=== PATIENT | female | born 1955 | race Caucasian/White ===

== ENCOUNTER 2016-10-15 06:09 | Inpatient (IN) | payer BC ==
[2016-10-15] MEDS ORDERED: Morphine INJ* 4 MG/ML 1 ML SYRINGE IV ONE (06:12)
[2016-10-15] MEDS ORDERED: HYDROmorphone* 1 MG/ML 1 ML SYR IV SLOW PU ONE (06:39)
[2016-10-15] MEDS ORDERED: Ondansetron INJ* 2 MG/ML VIAL IV ONE (06:39)
[2016-10-15 06:48] LABS: Hematocrit 38 % (35-47); Mean Corpuscular HGB Conc 34 g/dl (31-36); Mean Corpuscular Hemoglobin 31 pg (27-31); Mean Corpuscular Volume 92 fL (80-97); Mean Platelet Volume 9 um3 (7.4-10.4); Red Blood Count 4.15 10^6/ul (4.0-5.4); Red Cell Distribution Width 13 % (10.5-15); White Blood Count 4.7 10^3/ul (3.5-10.8)
[2016-10-15 06:58] LABS: BUN/Creatinine Ratio 16.2 (8-20); Calcium 9.5 mg/dL (8.6-10.3); EGFR African American 103.7 (>60); EGFR Non-African American 80.6 (>60)
[2016-10-15] MEDS ORDERED: fentaNYL* 50 MCG/ML 2 ML VIAL (100 MCG VIAL) IV SLOW PU ONE (07:17)
--- NOTE | 2016-10-15 07:52 | RAD ---
HISTORY: Left hip pain, deformity, trauma COMPARISONS: None relevant VIEWS: 4, frontal views of the pelvis with frontal and crosstable lateral views of the left hip. FINDINGS: BONE DENSITY: Normal. BONES: There is an angulated and slightly displaced intertrochanteric fracture of the proximal left femur JOINTS: There is no arthropathy. ALIGNMENT: There is no dislocation. SOFT TISSUES: Unremarkable. OTHER FINDINGS: Mild degenerative changes are noted of the lower lumbar spine IMPRESSION: PROXIMAL LEFT FEMUR FRACTURE
--- NOTE | 2016-10-15 09:28 | RAD ---
Indication: LEFT leg shortening and external rotation post fall down stairs. LEFT hip pain. Comparison: LEFT hip radiographs of the same date. Technique: Noncontrast CT pelvis. Multiplanar reformation with bone algorithm. Report: Calcific plaque of normal diameter visualized aortic bifurcation and iliac arteries. No CT abnormality of the visualized bowel, distal ureters, or urinary bladder. Post hysterectomy. Unremarkable adnexal regions. Negative for ascites. Negative for lymphadenopathy. Chronic appearing bilateral L5 spondylolysis with grade 1 L5-S1 anterolisthesis. Negative for pelvic fracture or joint diastases. Comminuted intratrochanteric to subtrochanteric fracture of the LEFT femur with impaction and varus and apex anterior angulation. Negative for fracture of the femoral head articular surface. Associated moderate LEFT hip joint effusion with fat fluid level consistent with lipohemarthrosis. The femoral head remains normally located in the acetabulum. IMPRESSION: Comminuted intratrochanteric to subtrochanteric fracture of the LEFT femur with impaction and varus and apex anterior angulation. Negative for fracture of the femoral head articular surface. Associated moderate LEFT hip joint effusion with fat fluid level consistent with lipohemarthrosis.
--- NOTE | 2016-10-15 09:57 | UC ---
Jimbo Ingram Alok, scribed for Kem Ruiz MD on 10/15/16 at 0755 . Progress - Progress Note Progress Note: 60 y/o female presents to the ED last signed off by Dr. Mejias at 0700. Pt reportedly c/o hip pain following fall from the stairs late last night. Pt denies any neck, back, shoulder, or STACY. Pt denies any PMHx. Appearance: Positive: Well-Appearing, No Pain Distress, Well-Nourished Skin: Positive: Warm, Skin Color Reflects Adequate Perfusion, Dry Head/Face: Positive: Normal Head/Face Inspection Eyes: Positive: Normal, EOMI, JJ ENT: Positive: Normal ENT inspection Neck: Positive: Supple, Nontender Respiratory/Lung Sounds: Positive: Clear to Auscultation, Breath Sounds Present Cardiovascular: Positive: Normal, RRR Abdomen Description: Positive: Nontender, Soft Bowel Sounds: Positive: Present Musculoskeletal: Positive: Left hip ROM limited. Lower extremity externally rotated with shortening Neurological: Positive: Normal, Alert, Oriented to Person Place, Time Psychiatric: Positive: Normal, Affect/Mood Appropriate - Results/Orders Results/Orders: Pt groggy from pain medication, left hip ROM limited secondary to fraction. Externally rotated and shortening. Hip/Pelvis XRAY- IMPRESSION: PROXIMAL LEFT FEMUR FRACTURE Pt is more comfortable, alert and oriented x3, and hemodynamically stable. Diagnosis is left femur proximal fracture I discussed the case with Dr. Muro and he will admit patient to his services and he requested for medical clearance. Dr. ramey from hospitalist services will medically clear for the patient. - EKG/XRAY/CT XRAY: hip Xray Comments: Hip/Pelvis XRAY- IMPRESSION: PROXIMAL LEFT FEMUR FRACTURE - Consult/PCP Time Called: 08:30 Consult/PCP: Dr Muro (ortho) and Dr Ramey (hospitalist) Consult Reason/Comments: Dr Ramey Will admit pending medical clearance. Dr Ramey will admit pt. The documentation as recorded by the Jimbo cortez Alok accurately reflects the service I personally performed and the decisions made by , Kem Ruiz MD.
--- NOTE | 2016-10-15 10:08 | HP ---
H&P (Free Text) History and Physical: PCP: Gilberto Contreras NP Date/Time of Evaluation: 10/15/16 CC: Left hip pain after fall HPI: Ms. Lew is a 60 yo female with a PMH of who presents to the ED today with left hip pain after fall. Pt reports feeling in her normal state of health today when she tripped over her slippers and fell on to her left side. She had immediate severe pain with inability to stand and therefore EMS was called for transport. EMS notes that patient's left leg appeared shortened and rotated but that she was otherwise stable. PMedHx PSurgHx SocHx: FamHx: ROS: as above, otherwise reviewed and all were negative Vitals: Vital Signs 10/15/16 10/15/16 10/15/16 06:15 06:30 06:47 Temperature 98.8 F Pulse Rate 90 Respiratory 14 14 15 Rate Blood Pressure 138/76 (mmHg) O2 Sat by Pulse 100 Oximetry 10/15/16 10/15/16 07:30 07:42 Temperature Pulse Rate 79 Respiratory 15 15 Rate Blood Pressure 125/61 (mmHg) O2 Sat by Pulse 92 Oximetry Constitutional: NAD, normally developed, well-nourished vitals: HEENM: atraumatic; sclera/conjunctiva: ; blephara: ; fundi: ; auricles: ; external auditory canals/tympanic membranes: ; hearing: ; nose/nasal: ; dentition: ; oropharynx: Neck: soft tissue: ; thyroid: Pulmonary: clear to auscultation bilaterally, good aeration, no accessory muscle use, percussion, fremitus CV: RR/RR, normal S1S2, no carotid bruit, no femoral bruit, no abdominal bruit, no jugular venous distention, 2+ B DP/PT, no edema Abdominal: soft, non-distended, non-tender, no rebound/guarding/rigidity, normoactive bowel sounds, no hepatosplenomegaly or masses, no costovertebral angle tenderness Lymph: neck: ; axilla: ; groin: Musculoskeletal: general: ; gait: ; stability: Integumental: Neurological Psychiatric orientation: affect: mood: eye contact: content: memory: responses: insight: Testing: Sodium 136 mmol/L (133-145) 10/15/16 06:30 Potassium 4.0 mmol/L (3.5-5.0) 10/15/16 06:30 BUN 12 mg/dL (6-24) 10/15/16 06:30 Creatinine 0.74 mg/dL (0.51-0.95) 10/15/16 06:30 Calcium 9.5 mg/dL (8.6-10.3) 10/15/16 06:30 ECG, personally reviewed: CXR, personally reviewed: Impression: DIAGNOSIS & PLAN Primary Secondary Admission Rational: DVTp: Code Status: HCP:
[2016-10-15] MEDS ORDERED: HYDROmorphone* 1 MG/ML 1 ML SYR IV SLOW PU PRN (10:20)
[2016-10-15] MEDS ORDERED: Ondansetron INJ* 2 MG/ML VIAL IV PRN ×3 (10:21→20:50)
[2016-10-15] MEDS ORDERED: HYDROmorphone* 2 MG/ML 1 ML SYR ONE (10:26)
[2016-10-15] MEDS ORDERED: Acetaminophen TAB* 325 MG PO PRN ×2 (10:33→18:42)
[2016-10-15] MEDS ORDERED: oxyCODONE/Acetamin 5/325 MG* TAB PO PRN (11:00)
[2016-10-15] MEDS: oxyCODONE/Acetamin 5/325 MG* TAB PO PRN (14:54)
--- NOTE | 2016-10-15 14:59 | HP ---
ADMISSION HISTORY AND PHYSICAL: DATE OF ADMISSION: 10/15/16 CHIEF COMPLAINT: Left hip pain secondary to mechanical fall. HISTORY OF PRESENT ILLNESS: The patient is a 60-year-old female who was in her normal state of good health when she tripped on her slipper coming down the stairs early this morning around 5 a.m., causing her to fall down approximately 6 stairs at her home. She had significant hip pain and was unable to get up from the floor. She called her son who was at the home this morning and emergency ambulance was called. She was brought to the [facility] where x-rays of the hip and pelvis reveal a displaced intertrochanteric left hip fracture. The patient denies loss of consciousness or head injury or other bodily injury upon her fall. PAST MEDICAL HISTORY: Significant for glaucoma and lateral epicondylitis of the left elbow, asthma. PAST SURGICAL HISTORY: Negative. MEDICATIONS: She takes: 1. Gabapentin 300 mg p.o. q.h.s. 2. Timolol eye drops 1 drop both eyes b.i.d. 3. Ibuprofen 400 mg p.o. q.h.s. p.r.n. elbow pain. 4. She takes albuterol inhaler 1 to 2 puffs q.4 hours p.r.n. shortness of breath. ALLERGIES: She has no known drug allergies. Pollen causes seasonal allergy problems yearly. SOCIAL HISTORY: The patient is . She has a son and a daughter who live nearby. 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 She denies use of alcohol or tobacco products. REVIEW OF SYSTEMS: Patient denies recent loss of consciousness, lightheadedness , dizziness. Denies recent shortness of breath, chest pain or palpitations. Denies gastrointestinal or genitourinary problems. Extremities: Per HPI. PHYSICAL EXAMINATION The patient evaluated lying supine in the emergency department in mild-to- moderate discomfort due to hip pain. She is alert and oriented x3. HEENT: PERRLA. EOMI. Neck: Supple. No bruits. Heart: Regular rate and rhythm. No murmurs auscultated. Lungs: Clear to auscultation without wheezes, rales or rhonchi. Abdomen is soft and nontender. Normoactive bowel sounds x4 quadrants. Upper extremities has some slight swelling at the left lateral epicondyle which has been chronic, mild tenderness. Her neurovascular status is intact with moving both upper extremities freely. The left lower extremity is shortened and externally rotated. She has a 2+ pedal pulse. She is able to wiggle her toes. Gross neurovascular status is intact. LABORATORY DATA: Lab studies show hemoglobin 13, hematocrit 38, white count 4.7. Remainder of her labs are essentially within normal limits. X-ray evaluation of the hip and pelvis reveals a displaced left intratrochanteric hip fracture with varus angulation. IMPRESSION: Displaced left intertrochanteric hip fracture. PLAN: The patient is admitted to the service of Dr. Muro. She has been n.p.o. of food and liquids since last night. Leah Lawson has seen her in consultation from the medical perspective and is cleared for surgical intervention. We recommend open reduction and internal fixation of the left hip. She will remain n.p.o. for surgical intervention this evening with Dr. Muro. Risks including but not limited to anesthesia complications, infection , failure of hardware and need for revision surgery, deep venous thrombosis, pulmonary embolism need for blood transfusion postoperatively all discussed with the patient. She understands and elected to proceed with surgery. MADHAVI DELGADO [id number]/[facility] #: [id number] I have seen and examined Ms. Lew. I agree with the above. TA/GS are functioning. Xray and CT show a comminuted intertrochanteric hip fracture. The plan is for closed versus open reduction and internal fixation of the fracture. I will plan on using a long gamma nail. LAYNE
--- NOTE | 2016-10-15 15:16 | CONS ---
HOSPITAL MEDICINE CONSULTATION REPORT: DATE OF CONSULT: 10/15/16 PRIMARY CARE PROVIDER: Gilberto Contreras NP. ATTENDING PHYSICIAN: Dr. Muro. CONSULTING PHYSICIAN: Dr. Gabino Ramey (dictation provided by Leah Lawson NP ). CHIEF COMPLAINT: Left hip pain after fall. HISTORY OF PRESENT ILLNESS: Ms. Lew is a 60-year-old female with a past medical history of very mild intermittent asthma, who presents today to the hospital after a fall at home complaining of left hip pain. Ms. Lew states she was in her normal state of health when she tripped over her slipper and fell down 5 to 6 steps. The patient had immediate severe pain to her left hip and was unable to ambulate. Emergency Medical Services were contacted and they brought her to the emergency room for evaluation. It was noted by the EMS that the patient's leg was externally rotated and shortened, but that she was otherwise stable. In the emergency room, she has been confirmed to have a left intertrochanteric femur fracture. Dr. Muro has been called from Orthopedic Services for admission. Ms. Lew states that she is in generally very good health. She states she would easily be able to walk up a flight of stairs carrying groceries with no chest pain or shortness of breath. She has no history of cardiac disease or pulmonary disease. She is a former smoker but quit over 15 years ago. She does use an albuterol inhaler but probably no more than once per month. PAST MEDICAL HISTORY: 1. Mild intermittent asthma. 2. History of knee arthroscopy. 3. History of left wrist de Quervain's release. 4. Tonsillectomy. MEDICATIONS: 1. Albuterol p.r.n. 2. Cosopt 1 drop both eyes b.i.d. 3. Ibuprofen p.r.n. 4. Gabapentin 300 mg p.o. q.p.m. ALLERGIES: No known drug allergies. FAMILY HISTORY: The patient reports that both her mother and father and that the father had lung cancer and mother had breast cancer. SOCIAL HISTORY: Again, the patient quit smoking over 15 years ago. She does not drink alcohol, has no history of drug abuse. She states that her Lamonte will be the healthcare proxy. She lives with Lamonte and 2 grandchildren. REVIEW OF SYSTEMS: A 14-point review of systems was completed with Ms. Lew today and all those not mentioned above were negative. PHYSICAL EXAMINATION: Vital Signs: Temperature 98.8, pulse rate 90, respiratory rate 14, O2 saturation 100% on room air. Blood pressure 138/76. General: Ms. Lew is lying in bed. She appears mildly uncomfortable but in no acute distress. Neuro: She is alert and oriented x3. She moves all extremities equally. There is no facial asymmetry or focal weakness. Extraocular movements are intact. Heart S1, S2. No murmur, rub or gallop and regular. Lungs are clear to auscultation bilaterally with no accessory muscle use and good aeration. Abdomen: Soft and nontender with bowel sounds positive x4. Extremities: No cyanosis or edema. The patient's left lower extremity is externally rotated and shortened. Skin: Intact. DIAGNOSTIC STUDIES/LAB DATA: WBC 4.7, hemoglobin 13.0, hematocrit 38, platelet count 199. Sodium 136, potassium 4.0, chloride 105, serum bicarbonate 26, BUN 12, creatinine 0.74. The patient's EKG is pending. Lower extremity CT is read as follows: "Comminuted intertrochanteric to subtrochanteric fracture of the left femur with impaction varus and apex anterior angulation. Negative for fracture of the left femoral head articular surface, associated moderate left hip joint effusion with fat fluid level consistent with lipohemarthrosis." Hip and pelvis x-ray shows "proximal left femur fracture." ASSESSMENT: Ms. Lew is a 60-year-old female who is otherwise healthy other than a very mild intermittent asthma, who presents today to the hospital after a fall with a left hip fracture. Plans are for orthopedics to admit the patient and Hospital Medicine will be providing consultation. Our recommendations are as follows: 1. Left hip fracture: Dr. Muro will be seeing the patient with proposed surgery for today. The patient will have pain medications p.r.n. She will have Zofran p.r.n. After surgery, we will be monitoring her H and H closely and she will have therapy services. The patient is a low risk for cardiac complications for the surgery. She is easily able to obtain 4 METS of activity without any symptoms. She has no history of cardiac or pulmonary disease. I am waiting for an EKG, which is pending. 2. Asthma. The patient reports using her inhaler no more than once per month. She has no evidence of exacerbation at this point, but we will monitor her closely. 3. DVT prophylaxis will be per Ortho. 4. Code status is full code. DISPOSITION: Per Ortho. TIME SPENT: Approximately 60 minutes were spent in the consultation of this patient, more than half that time was spent with the patient at the bedside, reviewing the events leading up to this hospitalization, performing the physical examination and reviewing my plan of care. LEAH LAWSON NP CC: Gilberto Contreras NP* [id number]/[facility] #: [id number] MTDShar
[2016-10-15] MEDS ORDERED: ceFAZolin 2 GM PREMIX(*) 2 GM/50 ML BAG IVPB ONE (17:11)
[2016-10-15] MEDS ORDERED: Bupivacaine 0.5% W/EPI SDV* 30 ML VIAL ONE (17:21)
[2016-10-15] MEDS ORDERED: Dexamethasone IV* 4 MG/ML 1 ML (4 MG) ONE (17:32)
[2016-10-15] MEDS ORDERED: Midazolam* 1 MG/ML 5 ML VIAL (5 MG) ONE (17:32)
[2016-10-15] MEDS ORDERED: Famotidine IV* 10 MG/ML 2 ML (20 mg) ONE (17:32)
[2016-10-15] MEDS ORDERED: fentaNYL* 50 MCG/ML 2 ML VIAL (100 MCG VIAL) ONE (17:32)
[2016-10-15] MEDS ORDERED: Lidocaine 2% PF* 5 ML VIAL ONE (17:32)
[2016-10-15] MEDS ORDERED: Propofol* 10 MG/ML 20 ML BTL IV PUSH ONE (17:32)
[2016-10-15] MEDS ORDERED: Scopolamine 1.5 mg* PATCH ONE (17:33)
[2016-10-15] MEDS ORDERED: Rocuronium* 10 MG/ML VIAL ONE (17:59)
[2016-10-15] MEDS ORDERED: PROCHLORPERAZINE INJ 5 MG/ML 2 ML VIAL IV PRN (18:42)
[2016-10-15] MEDS ORDERED: fentaNYL* 50 MCG/ML 2 ML VIAL (100 MCG VIAL) IV PRN (18:42)
[2016-10-15] MEDS ORDERED: DiMENhydriNATE IV* 50 MG/ML VIAL IV PUSH PRN (18:42)
[2016-10-15] MEDS ORDERED: Levalbuterol 0.63MG/3ML NEB INH PRN (18:42)
[2016-10-15] MEDS ORDERED: HYDROmorphone* 1 MG/ML 1 ML SYR IV PRN (18:42)
[2016-10-15] MEDS ORDERED: HYDROmorphone* 1 MG/ML 1 ML SYR ONE (19:33)
[2016-10-15] MEDS ORDERED: Ondansetron TAB* 4 MG PO PRN (20:50)
[2016-10-15] MEDS ORDERED: diPHENhydraMINE IV* 50 MG/ML 1 ml VIAL (BENADRYL) IV PRN (20:50)
[2016-10-15] MEDS ORDERED: Morphine INJ* 4 MG/ML 1 ML SYRINGE IV PRN (20:50)
[2016-10-15] MEDS ORDERED: Magnesium Hydroxide LIQ* 30 ML UDC PO PRN (20:50)
[2016-10-15] MEDS ORDERED: Polyethylene Glycol 3350* 17 GM PACKET PO PRN (20:50)
[2016-10-15] MEDS ORDERED: LACTULOSE* 30 ML UDC PO PRN (20:50)
[2016-10-15] MEDS ORDERED: Bisacodyl SUPP* 10 MG SUPP PR PRN (20:50)
[2016-10-15] MEDS ORDERED: Albuterol HFA INHALER* 8 gm MDI INH PRN (20:56)
--- NOTE | 2016-10-15 20:56 | RAD ---
INDICATION: Left hip gamma nail COMPARISON: Left hip October 15, 2016 TECHNIQUE: Intraoperative spot images were acquired read FINDINGS: There are interval postoperative changes with gamma nail placement. The fracture fragments are in good position and alignment. IMPRESSION: LEFT GAMMA NAIL PLACEMENT.
[2016-10-15] MEDS: D5W 1/2 NS 1000 ML BAG* 1,000 ML IV SCH (22:57)
[2016-10-15] MEDS: Docusate CAP* 100 MG PO SCH (23:49)
[2016-10-15] MEDS: Gabapentin CAP(*) 300 MG PO SCH (23:49)
[2016-10-15] MEDS: Dorzolamide/Timolol OPTH (NF) 10 ML BOT BOTH EYES SCH (23:53)
[2016-10-16] MEDS: ceFAZolin 1 GM in Dextrose (*) 1 GM/50 ML BAG IVPB SCH ×3 (01:57→18:16)
--- NOTE | 2016-10-16 05:46 | OP ---
OPERATIVE REPORT: DATE OF OPERATION: 10/15/16 DATE OF : 59 SURGEON: Jarrell Muro MD PIANO STRINGER: MADHAVI Hickey ANESTHESIOLOGIST: Dr. Mahmood. ANESTHESIA: General. PRE-OP DIAGNOSIS: Left comminuted peritrochanteric hip fracture. POST-OP DIAGNOSIS: Left comminuted peritrochanteric hip fracture. OPERATIVE PROCEDURE: Closed reduction and percutaneous fixation with a long gamma nail of left hip pretrochanteric hip fracture. INDICATIONS: Jenifer had a fall this morning on the stairs in her home. She is 60, she is relative ly healthy. She came to the emergency room and the fracture was diagnosed. We talked about risks a nd benefits and she elected to proceed with surgery. ESTIMATED BLOOD LOSS: 200 mL. COMPLICATIONS: None. FINDINGS: As expected. DESCRIPTION OF PROCEDURE: Jenifer was seen in the preoperative holding area and the correct site an d side and procedure were identified. We came back to the operating room, anesthesia was induced, a nd the patient was positioned on the fracture table with the left leg in the traction boot and the r ight leg in the well- leg mcclendon. We then obtained fluoroscopic imaging. The leg was positioned to obtain the closed reduction. Once we had the reduction in satisfactory position, we went ahead and prepped the leg in a standard fashion with some chlorhexidine scrub followed by ChloraPrep. The martiner curtain drape was then placed. We then had a formal time-out. I then brought in the C-arm imaging and marked the trajectory of my starting pin. This was then plac ed in the appropriate location on the tip of the greater trochanter. This was confirmed on the AP a nd lateral imaging. I then advanced the starting pin. The starting awl was then placed over the st arting pin. I then placed the guidewire. I measured the length of the nail. A 360 mm x 11 x 125 d egree nail was selected. This was placed in standard fashion. Prior to placing the nail, I had patrick med up to a 13-mm reamer. The starting reamer was also used. Once the nail was placed and position was confirmed with fluoroscopic imaging and I was satisfied with the position, I then placed the reed de for the lag screw pin. The skin incision was made and the guide was placed down to the bone. I t hen used fluoroscopic imaging to place the guide pin for the lag screw in the appropriate position. The drill was then used to drill over the guide pin. I had measured previously and selected a 95-m m lag screw. Once the path had been drilled, we then placed the lag screw. With the lag screw plac ed, I used a compression tool to compress a little bit at the fracture site. I then placed a set sc rew and then removed the guide handle. AP and lateral views of the hip showed nice alignment. We th en came back down to the distal aspect of the nail and perfect circles were obtained. I then placed one 42.5 mm distal locking screw through the static hole. The final fluoroscopic imaging was obtain ed. All wounds were copiously irrigated. The deeper tissues were approximated with some 2-0 Polysor b suture and skin was closed with maulik. Marcaine 0.5% with epinephrine was infiltrated into the operative wounds. The wounds were then dressed with Xeroform, 4 x 4's, ABDs on the proximal wounds, and some foam tape. She was then transferred back to the stretcher and woken back up and taken to the recovery room in stable condition. [id number]/[facility] #: [id number]
[2016-10-16] MEDS: oxyCODONE/Acetamin 5/325 MG* TAB PO PRN ×4 (06:00→18:15)
[2016-10-16 06:45] LABS: Hematocrit 32 % (35-47); Hemoglobin 10.8 g/dl (12.0-16.0)
[2016-10-16 07:04] LABS: Calcium 8.7 mg/dL (8.6-10.3); EGFR African American 102.1 (>60); EGFR Non-African American 79.4 (>60); Potassium 4.4 mmol/L (3.5-5.0)
--- NOTE | 2016-10-16 07:37 | PN ---
Progress Note - Progress Note Note: No issues this morning. Expected discomfort. Exam: dressing c/d/i, +TA/GS, length and alignment okay A/P: POD#1 s/p left hip gamma nail fixation of fracture plan OOB today, 50% weight bearing, if unable to do 50% weight bearing then we can do weight bearing as tolerated lovenox while in house and then d/c on ASA 325 EC daily dressing change tomorrow d/c planning f/u in my office in 2 weeks for suture removal
[2016-10-16] MEDS: Docusate CAP* 100 MG PO SCH ×2 (08:36→20:40)
[2016-10-16] MEDS: Vitamin THERAPEUTIC TAB PO SCH (08:37)
[2016-10-16] MEDS: Dorzolamide/Timolol OPTH (NF) 10 ML BOT BOTH EYES SCH (08:37)
[2016-10-16] MEDS: D5W 1/2 NS 1000 ML BAG* 1,000 ML IV SCH (08:42)
--- NOTE | 2016-10-16 11:20 | PN ---
Progress Note - Progress Note SOAP: Subjective: []60 y/o female s/p gamma nailing L hip 10/15/[address] Muro. Patient sitting in bed, pain controlled with pain meds, VSS overnight, H&H stable. No questions/ concerns. Objective: [General- Well appearing, NAD MSK- Dressing intact, no drainage noted. + DF/PF b/l LE, PT pulses 2+ b/l, no edema b/l LE, neg homans b/l LE, sensation grossly intact b/l ankles. Vital Signs Temp 98.2 F 10/16/16 07:52 Pulse 62 10/16/16 07:52 Resp 16 10/16/16 10:17 BP 103/52 10/16/16 07:52 Pulse Ox 99 10/16/16 07:52 Intake & Output 10/15/16 10/16/16 10/16/16 18:59 06:59 18:59 Intake Total 250 3087 120 Output Total 1570 1400 Balance 250 1517 -1280 Weight 137 lb Intake: IV Fluids 3087 D5 1/2 NS 687 LR 2400 IVPB 250 LR 250 Oral 0 120 Output: Urine 950 Haynes 620 1400 Laboratory Results - last 24 hr 10/16/16 10/16/16 06:18 06:18 Hgb 10.8 L Hct 32 L Sodium 135 Potassium 4.4 Chloride 102 Carbon Dioxide 27 Anion Gap 6 BUN 9 Creatinine 0.75 Est GFR ( Amer) 102.1 Est GFR (Non-Af Amer) 79.4 BUN/Creatinine Ratio 12.0 Glucose 166 H Calcium 8.7 ] Assessment: [60 y/o female s/p gamma nailing L hip 10/15/[address] Muro.] Plan: [- DVT prophylaxis- lovenox in house, ASA daily at home - Remain 50% weight bearing - Follow up with Dr. Muro 10-14 days after D/C for re-check, staple removal - Continue PT/ OT - Likely DC Sin, Brooklynn. Active Medications Generic Name Dose Route Start Last Admin Trade Name Freq PRN Reason Stop Dose Admin Acetaminophen 650 mg 10/15/16 10:33 Tylenol Tab* PO Q6H PRN pain or temp Albuterol 1 puff 10/15/16 20:56 Ventolin Hfa Inhaler* INH Q4H PRN SOB/WHEEZING Bisacodyl 10 mg 10/15/16 20:50 Dulcolax Supp* OH DAILY PRN constipation Diphenhydramine HCl 12.5 mg 10/15/16 20:50 Benadryl Iv* IV Q6H PRN PRURITIS Docusate Sodium 100 mg 10/15/16 21:00 10/16/16 08:36 Colace Cap* PO 100 mg BID JESSEE Administration Enoxaparin Sodium 30 mg 10/16/16 21:00 Lovenox(*) SUBCUT Q24H JESSEE Gabapentin 300 mg 10/15/16 18:00 10/15/16 23:49 Neurontin Cap(*) PO Not Given QPM JESSEE Dextrose/Sodium Chloride 1,000 mls @ 100 mls/hr 10/15/16 21:00 10/16/16 08:42 D5w 1/2 Ns 1000 Ml Bag* IV 100 mls/hr PER RATE JESSEE Administration Cefazolin Sodium/Dextrose 1 gm in 50 mls @ 200 mls/hr 10/16/16 02:00 10:28 Kefzol 1 Gm In Dextrose Duplex (*) IVPB 10/16/16 18:14 200 mls/hr Q8H JESSEE Administration Lactulose 30 ml 10/15/16 20:50 Lactulose* PO Q6H PRN constipation Latanoprost 1 drop 10/16/16 18:00 Xalatan 0.005%* RIGHT EYE QPM JESSEE Magnesium Hydroxide 30 ml 10/15/16 20:50 10/16/16 08:36 Milk Of Magnesia Liq* PO 30 ml Q6H PRN Administration constipation Morphine Sulfate 4 mg 10/15/16 20:50 Morphine Inj (Syringe)* IV Q2H PRN PAIN - BREAKTHROUGH Multivitamins 1 tab 10/16/16 09:00 10/16/16 08:37 Theragran Tab* PO 1 tab DAILY JESSEE Administration Pto: Remifemin 2 admin 10/17/16 09:00 Supplement PO DAILY JESSEE Ondansetron HCl 4 mg 10/15/16 20:50 Zofran Inj* IV Q6H PRN nausea Ondansetron HCl 4 mg 10/15/16 20:50 Zofran Tab* PO Q6H PRN NAUSEA Oxycodone/Acetaminophen 1 tab 10/15/16 11:00 Percocet 5/325 Tab* PO Q4H PRN PAIN - MODERATE Oxycodone/Acetaminophen 2 tab 10/15/16 11:00 10/16/16 10:17 Percocet 5/325 Tab* PO 2 tab Q4H PRN Administration PAIN - SEVERE Polyethylene Glycol/Electrolytes 17 gm 10/15/16 20:50 Miralax* PO DAILY PRN Constipation ]
--- NOTE | 2016-10-16 18:03 | PN ---
Subjective Date of Service: 10/16/16 Interval History: Patient seen and examined at bedside. Pt states that she is doing well after surgery. She had some nausea last night and this morning, she reports this is improved now. Denies fever, chills, shortness of breath, chest discomfort, V/D. Pt has been able to urinate since her mccabe was removed earlier today and is walking to the bathroom. Family History: Unchanged from Admission Social History: Unchanged from Admission Past Medical History: Unchanged from Admission Objective Active Medications: Acetaminophen (Tylenol Tab*) 650 mg PO Q6H PRN Reason: pain or temp Albuterol (Ventolin Hfa Inhaler*) 1 puff INH Q4H PRN Reason: SOB/WHEEZING Bisacodyl (Dulcolax Supp*) 10 mg CO DAILY PRN Reason: constipation Diphenhydramine HCl (Benadryl Iv*) 12.5 mg IV Q6H PRN Reason: PRURITIS Docusate Sodium (Colace Cap*) 100 mg PO BID [facility] Enoxaparin Sodium (Lovenox(*)) 30 mg SUBCUT Q24H [facility] Gabapentin (Neurontin Cap(*)) 300 mg PO QPM [facility] Dextrose/Sodium Chloride (D5w 1/2 Ns 1000 Ml Bag*) 1,000 mls @ 100 mls/hr IV PER RATE [facility] Cefazolin Sodium/Dextrose (Kefzol 1 Gm In Dextrose Duplex (*)) 1 gm in 50 mls @ 200 mls/hr IVPB Q8H [facility] Stop: 10/16/16 18:14 Lactulose (Lactulose*) 30 ml PO Q6H PRN Reason: constipation Latanoprost (Xalatan 0.005%*) 1 drop RIGHT EYE QPM [facility] Magnesium Hydroxide (Milk Of Magnesia Liq*) 30 ml PO Q6H PRN Reason: constipation Morphine Sulfate (Morphine Inj (Syringe)*) 4 mg IV Q2H PRN Reason: PAIN - BREAKTHROUGH Multivitamins (Theragran Tab*) 1 tab PO DAILY [facility] Pto: Remifemin (Supplement) 2 admin PO DAILY [facility] Ondansetron HCl (Zofran Inj*) 4 mg IV Q6H PRN Reason: nausea Ondansetron HCl (Zofran Tab*) 4 mg PO Q6H PRN Reason: NAUSEA Oxycodone/Acetaminophen (Percocet 5/325 Tab*) 1 tab PO Q4H PRN Reason: PAIN - MODERATE Oxycodone/Acetaminophen (Percocet 5/325 Tab*) 2 tab PO Q4H PRN Reason: PAIN - SEVERE Polyethylene Glycol/Electrolytes (Miralax*) 17 gm PO DAILY PRN Reason: Constipation Vital Signs 10/15/16 10/15/16 10/15/16 20:46 20:50 20:58 Temperature 98.2 F Pulse Rate 106 71 70 Respiratory 16 20 14 Rate Blood Pressure 148/71 141/65 123/50 (mmHg) O2 Sat by Pulse 96 100 100 Oximetry 10/15/16 10/15/16 10/15/16 21:17 21:32 21:48 Temperature Pulse Rate 88 87 74 Respiratory 13 13 13 Rate Blood Pressure 127/64 119/52 119/58 (mmHg) O2 Sat by Pulse 100 100 95 Oximetry 10/15/16 10/15/16 10/15/16 22:02 22:20 22:30 Temperature 98.8 F 98.0 F Pulse Rate 73 82 86 Respiratory 15 12 16 Rate Blood Pressure 115/73 125/59 145/85 (mmHg) O2 Sat by Pulse 97 94 97 Oximetry 10/15/16 10/15/16 10/15/16 22:41 22:54 23:48 Temperature 98.0 F 98.0 F Pulse Rate 84 86 Respiratory 22 16 16 Rate Blood Pressure 145/85 107/59 (mmHg) O2 Sat by Pulse 94 97 Oximetry 10/16/16 10/16/16 10/16/16 00:00 00:54 02:45 Temperature 98.6 F 97.9 F Pulse Rate 80 80 Respiratory 16 16 Rate Blood Pressure 107/65 113/68 (mmHg) O2 Sat by Pulse 97 97 98 Oximetry 10/16/16 10/16/16 10/16/16 05:10 06:00 07:52 Temperature 98.1 F 98.2 F Pulse Rate 68 62 Respiratory 16 18 18 Rate Blood Pressure 105/48 103/52 (mmHg) O2 Sat by Pulse 99 99 Oximetry 10/16/16 10/16/16 10/16/16 08:00 10:17 11:45 Temperature Pulse Rate 64 Respiratory 16 16 Rate Blood Pressure 98/52 (mmHg) O2 Sat by Pulse 98 Oximetry 10/16/16 10/16/16 10/16/16 12:17 12:42 12:54 Temperature 98.8 F Pulse Rate 73 Respiratory 16 18 Rate Blood Pressure 89/46 102/48 (mmHg) O2 Sat by Pulse 93 Oximetry 10/16/16 10/16/16 10/16/16 14:15 16:03 17:32 Temperature 98.2 F Pulse Rate 70 Respiratory 16 16 Rate Blood Pressure 113/51 (mmHg) O2 Sat by Pulse 96 96 Oximetry Oxygen Devices in Use Now: None Eyes: No Scleral Icterus, PERRLA Ears/Nose/Mouth/Throat: NL Teeth, Lips, Gums, Mucous Membranes Moist Neck: NL Appearance and Movements; NL JVP, Trachea Midline Respiratory: Symmetrical Chest Expansion and Respiratory Effort, Clear to Auscultation Cardiovascular: NL Sounds; No Murmurs; No JVD, RRR Abdominal: NL Sounds; No Tenderness; No Distention Extremities: No Edema Skin: - - Dressing to left hip clean, dry and intact. Neurological: Alert and Oriented x 3, NL Muscle Strength and Tone Lines/Tubes/Other Access: Clean, Dry and Intact Peripheral IV - site benign Nutrition: Taking PO's Result Diagrams: 10/16/16 06:18 10/16/16 06:18 Assess/Plan/Problems-Billing Assessment: Ms. Lew is a 60 yo female with no significant PMH who presented to the emergency room after a fall at home and was found to have a left hip fracture. - Patient Problems (1) Hip fracture, left Code(s): S72.002A - FRACTURE OF UNSP PART OF NECK OF LEFT FEMUR, INIT SNOMED Code(s): 714820816 Comment: - POD #1 - Management per Orthopedics - 50% weight bearing, continue PT/OT - Pain management and bowel regime (2) Asthma Code(s): J45.909 - UNSPECIFIED ASTHMA, UNCOMPLICATED SNOMED Code(s): 351082944 Comment: - No issue at this time (3) DVT prophylaxis Code(s): LBG1230 - SNOMED Code(s): 973185598 Comment: - Lovenox per ortho (4) Full code status Code(s): Z78.9 - OTHER SPECIFIED HEALTH STATUS SNOMED Code(s): 317737581 Status and Disposition: Inpatient. Plan for possible discharge in 1-2 days. Will sign off at this time, please call with any questions.
[2016-10-16] MEDS: PTO: Latanoprost 0.005%* 2.5 ml BTL RIGHT EYE SCH (18:13)
[2016-10-16] MEDS: Gabapentin CAP(*) 300 MG PO SCH (18:15)
[2016-10-16] MEDS: Enoxaparin(*) 30 MG/0.3 ML SYR SUBCUT SCH (20:40)
[2016-10-16] MEDS: Ketorolac INJ* 30 MG/ML 1 ML VIAL IV PUSH PRN (21:07)
[2016-10-17] MEDS: Ketorolac INJ* 30 MG/ML 1 ML VIAL IV PUSH PRN ×3 (05:46→20:00)
[2016-10-17] MEDS: Vitamin THERAPEUTIC TAB PO SCH (07:42)
[2016-10-17] MEDS: oxyCODONE/Acetamin 5/325 MG* TAB PO PRN ×3 (07:42→22:12)
[2016-10-17] MEDS: Docusate CAP* 100 MG PO SCH ×2 (07:42→20:32)
[2016-10-17] MEDS: [UNRECOGNIZED DRUG - OTHER] PO SCH (07:43)
[2016-10-17 07:55] LABS: Hematocrit 27 % (35-47); Hemoglobin 9.3 g/dl (12.0-16.0)
--- NOTE | 2016-10-17 10:50 | PN ---
Progress Note - Progress Note SOAP: Subjective: Patient is doing well. She has increased pain overnight so she was given toradol. Now her pain is under better control. She has some nausea. She denies CP, SOB N/T and calf pain. She is doing well with PT. Objective: PE- 60 y/o WDWN F NAD lying comfortably in bed LLE- dressing c/d/i, flexion/extension of knee and ankle, calf soft nontender, NVI Vital Signs Temp Pulse Resp BP Pulse Ox 99.2 F 73 16 103/52 94 10/17/16 07:28 10/17/16 07:28 10/17/16 09:42 10/17/16 07:28 10/17/16 08:00 Laboratory Results - last 24 hr 10/17/16 07:17 Hgb 9.3 L Hct 27 L Assessment: POD 2 Gamma nail left hip on 10/15/16 Plan: 50% weight bearing continue PT Monitor H&H Lovenox for DVT prophylaxis then ASA on DC Possible DC tomorrow to home F/U 10-[address] Muro outpatient for staple removal
--- NOTE | 2016-10-17 15:29 | PN ---
Progress Note - Progress Note Note: Doing well. No events. Good alignment. H/H 05/05 POD#2 s/p L gamma nail 50% weight bearing unless can not do this then okay to weight bear as tolerated d/c tomorrow to home f/u with me in my office in 1.5 weeks for staple removal
[2016-10-17] MEDS: PTO: Latanoprost 0.005%* 2.5 ml BTL RIGHT EYE SCH (18:25)
[2016-10-17] MEDS: Gabapentin CAP(*) 300 MG PO SCH (18:26)
[2016-10-17] MEDS: Enoxaparin(*) 30 MG/0.3 ML SYR SUBCUT SCH (20:32)
[2016-10-18] MEDS: Docusate CAP* 100 MG PO SCH (09:19)
[2016-10-18] MEDS: Vitamin THERAPEUTIC TAB PO SCH (09:20)
[2016-10-18] MEDS: oxyCODONE/Acetamin 5/325 MG* TAB PO PRN (09:20)
[2016-10-18] MEDS: [UNRECOGNIZED DRUG - OTHER] PO SCH (09:20)
--- NOTE | 2016-10-18 09:42 | PN ---
Progress Note - Progress Note SOAP: Subjective: Pt is doing well. Her pain is well controlled. She is feeling well and denies CP, SOB, f/c or N/T. VSS overnight Objective: PE- 60 WDWN F NAD, lying comfortably in bed LLE- dressing changed, incision w/o redness or signs of infection, maulik intact, +DF/PF of ankle, calf soft nontender, NVI Vital Signs Temp Pulse Resp BP Pulse Ox 98.3 F 70 18 109/58 99 10/18/16 07:54 10/18/16 07:54 10/18/16 09:20 10/18/16 07:54 10/18/16 07:54 Assessment: POD 3 Gamma nail Left hip Plan: Dressing changed today by Dr. Muro DC to home today ASA 325mg po daily, percocet and OTC stool softener 50% WB LLE if possible, if having difficulty may be WBAT F/U with Dr. Muro 10 days for suture removal
[2016-10-18 13:08] VITALS: BP 117/64
--- NOTE | 2016-10-18 13:21 | DS ---
DISCHARGE SUMMARY: DATE OF ADMISSION: 10/15/16 DATE OF DISCHARGE: 10/18/16 PROVIDER: Dr. Jarrell Muro. ADMITTING DIAGNOSIS: Status post left hip gamma nail for treatment of displaced left hip intertroch anteric fracture. SECONDARY DIAGNOSES: 1. Glaucoma. 2. Lateral epicondylitis of the left elbow. 3. Asthma. CONSULTATIONS: PT/OT and Medicine. HISTORY OF PRESENT ILLNESS: Ms. eLw is a 60-year-old female who presented to the ER after she tripped coming down the stairs and fell on her hip. She is having significant pain. X-rays of the hip and pelvis in the ER revealed displaced intertrochanteric left hip fracture. Therefore she agr eed to undergo a left hip gamma nail with Dr. Muro on 10/15/16. HOSPITAL COURSE: The patient was admitted to the [facility] on 10/15/16. She underwent a left hip gamma nail. Postoperatively she recovered on the short-stay surgical unit. On postop da y 1, she was advanced to a regular diet without difficulty and her pain was controlled with oral and IV pain medication. She was restarted on her home medications. Her labs and vitals remained stable . She was 50% weightbearing on the left lower extremity. She advanced appropriately with physical t herapy and occupational therapy. Her DVT prophylaxis was managed with Lovenox. By postop 3, she wa s orthopedically and medically stable for discharge to home. DISCHARGE CONDITION: Stable. DISCHARGE MEDICATIONS: Home medications continued at discharge to include: 1. Ibuprofen 400 mg p.o. q.6 hours, patient instructed not to take with aspirin. 2. Cosopt one drop to both eyes twice a day. 3. Gabapentin 300 mg p.o. every night. 4. Ventolin HFA inhaler, 1 to 2 puffs inhalation q.4 hours as needed. New medications started on discharge to include: 1. Aspirin 325 mg p.o. daily. 2. Percocet 5/325, one to two tabs q.4 to 6 hours as needed for pain. DISCHARGE INSTRUCTIONS: The patient is 50% weightbearing on left lower extremity. If it is too diff icult for the patient, she may be weightbearing as tolerated. She may shower in 3 days. She should redress the incision with a bandage. She should not submerge in water such as bath, pools or hot t ub. [place] will be removed on her followup visit. She will follow up with Dr. Muro in 10 days f or suture removal and recheck. She should call the office or go the ER if she develops chest pain, shortness of breath, calf pain or tenderness or fever greater than 101.5. She should take 325 mg bassam ly for DVT prophylaxis, Percocet for pain, and she may take [id number] stool softener for opia te-induced constipation. She was instructed not to take ibuprofen while on aspirin. MADHAVI TALAMANTES [id number]/[facility] #: [id number]
--- NOTE | 2016-10-26 23:47 | ED ---
[facility], scribed for Luis Mejias MD on 10/15/16 at 0612 . Adult Trauma - HPI Summary HPI Summary: Pt is a 60 year old female who fell down the stairs this morning. She states that she was coming down the stairs to go to the bathroom and she does not remember what happened after that although she denies any LOC. She presents with a painful left leg visibly shortened and externally rotated. Pt is not on any blood-thinners. PMHx of arthritis, GERD, and glaucoma. - History of Current Complaint Stated Complaint: FALL LEFT HIP PAIN Time Seen by Provider: 10/15/16 06:10 Hx Obtained From: Patient Mechanism of Injury: Fall Ambulatory at the Scene: No Loss of Consciousness: no loss of consciousness Onset/Duration: Started Minutes Ago, Traumatic, Still Present Onset of Pain: Immediate Onset Severity: Moderate Current Severity: Moderate Location: Abdomen/Pelvis - Left hip, Extremities - Left leg Aggravating Factor(s): Movement Alleviating Factor(s): Nothing Associated Signs & Symptoms: Positive: Negative - Additional Pertinent History Primary Care Physician: ELI - Allergy/Home Medications Allergies/Adverse Reactions: Allergies Allergy/AdvReac Type Severity Reaction Status Date / Time No Known Drug Allergy Allergy Unknown Verified 10/15/16 11:09 Reaction Details POLLEN Allergy Runny Nose Uncoded 11/29/15 10:11 PMH/Surg Hx/FS Hx/Imm Hx Endocrine/Hematology History: Denies: Hx Diabetes, Hx Systemic Lupus Erythematosus Cardiovascular History: Denies: Hx Congestive Heart Failure, Hx Hypertension, Hx Pacemaker/ICD Respiratory History: Reports: Other Respiratory Problems/Disorders - SOB, USES INHALER, STATES IT IS NOT ASTHMA GI History: Reports: Hx Gastroesophageal Reflux Disease - USES OMEPRASOLE otc PRN, Other GI Disorders - reflux History: Denies: Hx Dialysis, Hx Renal Disease Musculoskeletal History: Reports: Hx Arthritis - BACK, RT THUMB Denies: Hx Rheumatoid Arthritis Sensory History: Reports: Hx Contacts or Glasses - GLASSES, Hx Glaucoma - LEFT EYE- SLIGHT Denies: Hx Hearing Aid Opthamlomology History: Reports: Hx Contacts or Glasses - GLASSES, Hx Glaucoma - LEFT EYE- SLIGHT Psychiatric History: Denies: Hx Panic Disorder - Cancer History Hx Chemotherapy: No Hx Radiation Therapy: No - Surgical History Surgery Procedure, Year, and Place: 1970s TRAUMA TO BREAST, REPAIRED [facility]. 2007 HYSTERECTOMY- [place]. 2010 BILAT KNEE SCOPINGS [place]. 07/2015 L5-S1 [facility] Hx Anesthesia Reactions: No - Family History Known Family History: Positive: Other - Breast Cancer (mother) Negative: Cardiac Disease - No FMHx of CAD - Social History Occupation: Employed Full-time Lives: With Family - Alcohol Use: None Hx Substance Use: No Substance Use Type: Reports: None Hx Tobacco Use: No Smoking Status (MU): Never Smoked Tobacco Have You Smoked in the Last Year: No Review of Systems Negative: Fever Positive: Arthralgia - Left hip, Myalgia - Left leg Negative: Syncope All Other Systems Reviewed And Are Negative: Yes Physical Exam Triage Information Reviewed: Yes Vital Signs On Initial Exam: Initial Vitals Temp Pulse Resp BP Pulse Ox 98.8 F 90 14 138/76 100 10/15/16 06:15 10/15/16 06:15 10/15/16 06:15 10/15/16 06:15 10/15/16 06:15 Vital Signs Reviewed: Yes Diagnostics - Vital Signs Vital Signs Temp Pulse Resp BP Pulse Ox 10/15/16 10:30 79 11 117/59 96 10/15/16 07:42 79 15 125/61 92 10/15/16 07:30 15 10/15/16 06:47 15 10/15/16 06:30 14 10/15/16 06:15 98.8 F 90 14 138/76 100 - Laboratory Lab Results: Lab Results 10/15/16 10/15/16 Range/Units 06:30 06:30 WBC 4.7 (3.5-10.8) 10^3/ul RBC 4.15 (4.0-5.4) 10^6/ul Hgb 13.0 (12.0-16.0) g/dl Hct 38 (35-47) % MCV 92 (80-97) fL MCH 31 (27-31) pg MCHC 34 (31-36) g/dl RDW 13 (10.5-15) % Plt Count 199 (150-450) 10^3/ul MPV 9 (7.4-10.4) um3 Neut % (Auto) 57.9 (38-83) % Lymph % (Auto) 32.3 (25-47) % Addison % (Auto) 7.2 (1-9) % Eos % (Auto) 2.0 (0-6) % Baso % (Auto) 0.6 (0-2) % Absolute Neuts (auto) 2.7 (1.5-7.7) 10^3/ul Absolute Lymphs (auto) 1.5 (1.0-4.8) 10^3/ul Absolute Monos (auto) 0.3 (0-0.8) 10^3/ul Absolute Eos (auto) 0.1 (0-0.6) 10^3/ul Absolute Basos (auto) 0 (0-0.2) 10^3/ul Absolute Nucleated RBC 0 10^3/ul Nucleated RBC % 0.1 Sodium 136 (133-145) mmol/L Potassium 4.0 (3.5-5.0) mmol/L Chloride 105 (101-111) mmol/L Carbon Dioxide 26 (22-32) mmol/L Anion Gap 5 (2-11) mmol/L BUN 12 (6-24) mg/dL Creatinine 0.74 (0.51-0.95) mg/dL Est GFR ( Amer) 103.7 (>60) Est GFR (Non-Af Amer) 80.6 (>60) BUN/Creatinine Ratio 16.2 (8-20) Glucose 107 H (70-100) mg/dL Calcium 9.5 (8.6-10.3) mg/dL Result Diagrams: 17 07:17 0317 06:18 Lab Statement: Any lab studies that have been ordered have been reviewed, and results considered in the medical decision making process. Adult Trauma Course/Dx - Diagnoses Provider Diagnoses: LEFT HIP FRACTURE Discharge - Discharge Plan Condition: Stable Disposition: ADMITTED TO [facility], [place] documentation as recorded by the [facility] accurately reflects the service I personally performed and the decisions made by , Luis Mejias MD.
== END 2016-10-18 14:00 | disposition home health service (06) | DRG 308 ==
LOC: ED 06:09 → SSU 10:55
PROVIDERS: ADMIT Orthopaedic Surgery Hand Surgery; ATTEND Orthopaedic Surgery Hand Surgery
PROC: 0QS734Z Reposition Left Upper Femur with Internal Fixation Device, Percutaneous Approach (ICD-10-PCS; principal; 2016-10-15 17:30)
DX: S72.142A Displaced intertrochanteric fracture of left femur, initial encounter for closed fracture (principal); H40.9 Unspecified glaucoma; W10.9XXA Fall (on) (from) unspecified stairs and steps, initial encounter; Y92.009 Unspecified place in unspecified non-institutional (private) residence as the place of occurrence of the external cause; J45.909 Unspecified asthma, uncomplicated; Z87.891 Personal history of nicotine dependence; Z80.1 Family history of malignant neoplasm of trachea, bronchus and lung; Z80.3 Family history of malignant neoplasm of breast; M77.12 Lateral epicondylitis, left elbow; Z79.82 Long term (current) use of aspirin
CPT/HCPCS: 36415; 80048; 85014; 85018; 85025; 93005; 94760; A9270-GY; C1713; C1776; J0690; J1100; J1170; J1650; J1885; J2250; J2270; J2405; J2704; J3010

== ENCOUNTER 2018-07-04 08:47 | Day surgery (SDC) | payer BC ==
[~2018-07-04 08:47] MED LIST: Buffered Lidocaine 0.9% SYRIN* 5 ML/SYR SYRINGE INTRADERM ONE
[2018-07-04] MEDS ORDERED: Bupivacaine 0.25% SDV PF* 10 ML VIAL INJ ONE (09:02)
[2018-07-04] MEDS ORDERED: Bupivacaine 0.25% EPI 200,000* 30 ML SDV ONE (09:02)
[2018-07-04] MEDS ORDERED: Propofol* 10 MG/ML 20 ML BTL IV PUSH ONE (09:19)
[2018-07-04] MEDS ORDERED: Lidocaine 2% PF * 5 ML VIAL ONE ×2 (09:20→10:35)
[2018-07-04] MEDS ORDERED: Midazolam* 1 MG/ML 2 ML VIAL (2 MG) ONE (09:20)
[2018-07-04] MEDS ORDERED: fentaNYL* 50 MCG/ML 2 ML VIAL (100 MCG VIAL) ONE ×2 (09:20→11:25)
[2018-07-04] MEDS ORDERED: Buffered Lidocaine 0.9% SYRIN* 5 ML/SYR SYRINGE ONE (09:35)
[2018-07-04] MEDS ORDERED: Naloxone* 0.4 MG/ML 1 ML VIAL IV PRN (10:39)
[2018-07-04] MEDS ORDERED: Acetaminophen TAB* 325 MG PO PRN (10:39)
[2018-07-04] MEDS ORDERED: Ondansetron INJ* 2 MG/ML VIAL IV PRN (10:39)
[2018-07-04] MEDS: fentaNYL* 50 MCG/ML 2 ML VIAL (100 MCG VIAL) IV PRN ×2 (11:26→12:02)
[2018-07-04 14:13] VITALS: BP 98/68
[2018-07-04] MEDS ORDERED: Acetaminophen TAB* 325 MG ONE (14:20)
--- NOTE | 2018-07-05 04:39 | OP ---
DATE OF OPERATION: 07/04/18 - [facility] DATE OF : 59 SURGEON: Jarrell Muro MD VICE PRESIDENT OF MANUFACTURING: MADHAVI Muñoz ANESTHESIOLOGIST: Dr. Burnham. ANESTHESIA: Local MAC. PRE-OP DIAGNOSES: 1. Left pisotriquetral arthritis. 2. Left index trigger finger. 3. Left small trigger finger. POST-OP DIAGNOSES: 1. Left pisotriquetral arthritis. 2. Left index trigger finger. 3. Left small trigger finger. OPERATIVE PROCEDURE: 1. Left pisiform excision. 2. Left index trigger finger release. 3. Left small trigger finger release. INDICATIONS: Jenifer has had this going on for some time now. The index finger and the small finger catch and they are comfortable. She had had a carpal tunnel injection and she felt much better after that. She was still having a lot of ulnar-sided wrist pain and had a pisotriquetral degenerative joint disease. We talked about risks and benefits. She had wanted to proceed with surgery. ESTIMATED BLOOD LOSS: 2 mL. COMPLICATIONS: None. FINDINGS: See above and below. DESCRIPTION OF PROCEDURE: Jenifer was seen in the preoperative holding area. The correct site, side, and procedure were identified. We came back to the operating room where the arm was prepped and draped in the usual fashion and a time-out was performed. The arm was exsanguinated with the Esmarch and the tourniquet inflated to 250 mmHg. I made a radially based V-shaped incision and raised a full-thickness flap off the pisiform bone and FCU tendon. I made a longitudinal split to the FCU tendon. I used a nez perce blade to release the soft tissue all about the pisiform bone and removed the bone in its entirety in one piece. There was full thickness cartilage loss and end-stage arthritis on both the triquetrum and the pisiform. The bone was sent off as a specimen. I closed the tendons with a 4-0 Ethibond suture and the skin was closed with 4-0 nylon suture. I then made a 1 cm longitudinal incision over the index finger A1 nena. Dissection was carried down and full thickness flaps were raised off the tendon sheath. The Ragnell retractors were placed. I released the A1 nena in its entirety longitudinally along the radial third. The release was completed with tenotomy scissors and once everything was freed up distally, we irrigated out the wounds. Skin was closed with 4-0 nylon suture. I then made a 1 cm incision over the small finger A1 nena. Full thickness flaps were raised. The A1 nena was released longitudinally along its radial third. Once the release was completed distally and proximally, I irrigated out the wound. Skin was closed with 4-0 nylon suture. Soft dressings were applied and the patient was taken to the recovery room in stable condition. [id number]/[facility] #: [id number] [place]
== END 2018-07-04 15:43 | disposition home or self-care (01) ==
LOC: OR 08:47
PROVIDERS: ATTEND Orthopaedic Surgery Hand Surgery
DX: M19.032 Primary osteoarthritis, left wrist (principal); M65.322 Trigger finger, left index finger; M65.352 Trigger finger, left little finger; Z87.891 Personal history of nicotine dependence; K21.9 Gastro-esophageal reflux disease without esophagitis; J30.2 Other seasonal allergic rhinitis
CPT/HCPCS: 88304; 88311; A9270-GY; J2250; J2704; J3010; J3490

== ENCOUNTER 2022-07-07 17:49 | Observation (INO) ==
[2022-07-07 18:20] LABS: ABS Eosinophils 0.1 10^3/ul (0-0.6); ABS Lymphocytes 1.4 10^3/ul (1.0-4.8); ABS Monocytes 0.5 10^3/ul (0-0.8); ABS Neutrophils 2.2 10^3/ul (1.5-7.7); Eosinophil % 1.6 %; Hematocrit 38 % (35-47); Hemoglobin 12.8 g/dL (12.0-16.0); Lymphocyte % 32.8 %; Mean Corpuscular HGB Conc 34 g/dL (31-36); Mean Corpuscular Hemoglobin 31 pg (27-31); Mean Corpuscular Volume 93 fL (80-97); Mean Platelet Volume 8.3 fL (7.4-10.4); Platelet Count 232 10^3/uL (150-450); Red Cell Distribution Width 13 % (10-15); White Blood Count 4.2 10^3/uL (3.5-10.8)
[2022-07-07 19:05] LABS: Albumin 4.6 g/dL (3.2-5.2); Albumin/Globulin Ratio 2.2 (1-3); Calcium 9.1 mg/dL (8.6-10.3); Globulin 2.1 g/dL (2-4); Potassium 3.8 mmol/L (3.5-5.0); Total Bilirubin 0.6 mg/dL (0.2-1.0); Total Protein 6.7 g/dL (6.4-8.9)
[2022-07-07 23:26] LABS: High Sensitivity Troponin 1 Hr 3 pg/mL (<15)
[2022-07-08] MEDS ORDERED: Albuterol HFA INHALER 8 gm MDI INH PRN (02:57)
[2022-07-08] MEDS ORDERED: Enoxaparin 40 MG/0.4 ML SYR SUBCUT SCH (03:00)
[2022-07-08 07:22] LABS: HDL Cholesterol 72.6 mg/dL
[2022-07-08] MEDS ORDERED: Sulfur Hexaflouride MICROSPHR 25 MG VIAL ONE (08:10)
[2022-07-08] MEDS ORDERED: Timolol 0.5% OPTH.SOL BTL BOTH EYES SCH (09:00)
[2022-07-08] MEDS ORDERED: Psyllium PAK PO SCH (09:00)
[2022-07-08] MEDS ORDERED: Polyethylene Glycol 3350 17 GM PACKET PO SCH (09:00)
[2022-07-08] MEDS ORDERED: Aminophylline 25 MG/ML VIAL ONE (11:37)
[2022-07-08] MEDS ORDERED: Regadenoson 0.4 MG/5 ML SYRINGE ONE (11:37)
[2022-07-08 16:33] VITALS: BP 119/72
[2022-07-08] MEDS ORDERED: Latanoprost 0.005% 2.5 ml BTL BOTH EYES SCH (21:00)
== END 2022-07-08 16:33 | disposition home or self-care (01) ==
LOC: ED 17:49 → EDHOLD 17:49 → SUATTDRO 07-08 02:49 → EDHOLD 07-08 16:32
PROVIDERS: ADMIT Internal Medicine; ATTEND Internal Medicine